=== PATIENT | female | born 2000 | race Caucasian/White ===

== ENCOUNTER 2020-02-05 23:16 | Emergency (ER) | payer OTHER ==
[2020-02-05 23:25] VITALS: BP 121/76; PULSE 77; TEMP 98.7; BMI 36.3
--- NOTE | 2020-02-06 00:02 | PDOC ---
Attending Attestation - Resident Resident Name: Maurice Morales - ED Attending Attestation I have performed the following: I have examined & evaluated the patient, The case was reviewed & discussed with the resident, I agree w/resident's findings & plan, Exceptions are as noted - HPI HPI: 19 yo F history asthma, hidradenitis suppurativa presents with swelling, pain, redness, drainage of pus to the left axilla. She states she has had multiple similar lesions in the past. She was evaluated by a surgeon but did not have any procedures. She has had multiple abscesses, she has popped them herself in the past. She states she attempted to pop this one herself as well, with some passage of purulent material. - Physicial Exam PE: GENERAL: Awake, alert, and fully oriented, in no acute distress HEAD: No signs of trauma EYES: PERRLA, EOMI, sclera anicteric, conjunctiva clear ENT: Auricles normal inspection, hearing grossly normal, nares patent, oropharynx clear without exudates. Moist mucosa NECK: Normal ROM, supple, no lymphadenopathy, JVD, or masses LUNGS: Breath sounds equal, clear to auscultation bilaterally. No wheezes, and no crackles HEART: Regular rate and rhythm, normal S1 and S2, no murmurs, rubs or gallops ABDOMEN: Soft, nontender, normoactive bowel sounds. No guarding, no rebound. No masses EXTREMITIES: Normal range of motion, no edema. No clubbing or cyanosis. No cords, erythema, or tenderness NEUROLOGICAL: Cranial nerves II through XII grossly intact. Normal speech, normal gait. Motor and sensation intact SKIN: Warm, dry, normal turgor. L axilla with tender, warm, fluctuant area with surrounding induration, draining slight purulent material. - Medical Decision Making L axillary abscess, already draining at time of ED arrival. As it was superficial, with an old tract, and at a head, small incision was made, with passage of moderate amt of purulent material. Stable for DC home. Referred to Dr. Mcwilliams as outpatient, as this is recurrent. Discharge - Discharge Information Problems reviewed: Yes Clinical Impression/Diagnosis: Axillary hidradenitis suppurativa Condition: Good Disposition: HOME - Additional Discharge Information Prescriptions: Sulfamethoxazole/Trimethoprim [Bactrim Ds -] 1 tab PO BID #14 tablet - Follow up/Referral Referrals: Baljinder Mcwilliams MD [Staff Physician] - Delfina Macario MD [Primary Care Provider] - - Patient Discharge Instructions Patient Printed Discharge Instructions: Hidradenitis Suppurativa Additional Instructions: Please follow up with the surgeon below. Please return if you have any new, worsening or concerning symptoms. - Post Discharge Activity
--- NOTE | 2020-02-06 00:13 | PDOC ---
History of Present Illness - General Chief Complaint: Pain Stated Complaint: ARM PAIN/L EAR PAIN Time Seen by Provider: 02/05/20 23:33 History Source: Patient Exam Limitations: No Limitations - History of Present Illness Initial Comments: 02/06/20 00:08 Patient is a 19F with history of asthma and hidradenitis suppurativa here today complaining of an abscess to her left armpit that started becoming painful today. Patient states she was under evaluation for surgery several years ago but decided against it. Denies fevers, chills, nausea, vomiting. Denies chest pain, shortness of breath, abdominal pain. Has anaphylactic reaction to PCN. LMP 10 days ago. Past History - Medical History Allergies/Adverse Reactions: Allergies Allergy/AdvReac Type Severity Reaction Status Date / Time Penicillins Allergy Hives Verified 05/17/14 01:45 Home Medications: Ambulatory Orders No Home Medications 0 dose .ROUTE UTDICT 07/11/12 Albuterol Sulfate Inhaler - [Ventolin HFA Inhaler -] 1 - 2 inh PO Q4H #1 inhaler 05/17/14 Azithromycin [Zithromax 250mg Tablets -] 250 mg PO DAILY #6 tablet 05/17/14 predniSONE [Deltasone -] 40 mg PO ASDIR #4 tab 05/17/14 Sulfamethoxazole/Trimethoprim [Bactrim Ds -] 1 tab PO BID #14 tablet 02/06/20 Asthma: Yes COPD: No - Immunization History Td Vaccination: Yes TDAP Vaccination: Yes Immunization Up to Date: Yes - Psycho-Social/Smoking History Smoking Status: No Smoking History: Unknown if ever smoked Number of Cigarettes Smoked Daily: 0 - Substance Abuse Hx (Audit-C & DAST Scrn) How often the patient has a drink containing alcohol: Monthly or less Score: In Men: 4 or > Positive; In Women: 3 or > Positive: 1 Screen Result (Pos requires Nsg. Audit-10AR): Negative Review of Systems - Review of Systems Able to Perform ROS?: Yes Comments:: 02/06/20 00:13 GENERAL/CONSTITUTIONAL: No fever or chills. No weakness. HEAD, EYES, EARS, NOSE AND THROAT: No change in vision. No sore throat. CARDIOVASCULAR: No chest pain or shortness of breath RESPIRATORY: No cough, wheezing, or hemoptysis. GASTROINTESTINAL: No nausea, vomiting, diarrhea or constipation. GENITOURINARY: No dysuria, frequency, or change in urination. MUSCULOSKELETAL: No joint or muscle swelling or pain. No neck or back pain. SKIN: No rash NEUROLOGIC: No headache, vertigo, loss of consciousness, or change in strength/sensation. ALLERGIC/IMMUNOLOGIC: No hives or skin allergy. *Physical Exam - Vital Signs Last Vital Signs Temp Pulse Resp BP Pulse Ox 98.7 F 77 18 121/76 97 02/05/20 23:23 02/05/20 23:23 02/05/20 23:23 02/05/20 23:23 02/05/20 23:23 - Physical Exam 02/06/20 00:13 GENERAL: Awake, alert, and fully oriented, in no acute distress L ARMPIT: 2cm fluctuant mass tender to palpation with small amount of drainage. Old scarring lesions. HEAD: No signs of trauma, normocephalic, atraumatic EYES: PERRLA, EOMI, sclera anicteric, conjunctiva clear ENT: Auricles normal inspection, hearing grossly normal, nares patent, oropharynx clear without exudates. Moist mucosa NECK: Normal ROM, supple, no lymphadenopathy, JVD, or masses LUNGS: No distress, speaks full sentences, clear to auscultation bilaterally HEART: Regular rate and rhythm, normal S1 and S2, no murmurs, rubs or gallops, peripheral pulses normal and equal bilaterally. ABDOMEN: Soft, nontender, normoactive bowel sounds. No guarding, no rebound. No masses EXTREMITIES: Normal inspection, Normal range of motion, no edema. No clubbing or cyanosis. NEUROLOGICAL: Cranial nerves II through XII grossly intact. Normal speech, normal gait, no focal sensorimotor deficits SKIN: Warm, Dry, normal turgor, no rashes or lesions noted. Procedures - Incision and Drainage I&D Site: Left: Axilla Anesthesia: 1% Lidocaine w/ Epi Volume(ml): 8 Blade Size: 11 Attempts: 1 Plain Packing: No Dressing: Yes Progress: 02/06/20 00:22 tolerated without complication Medical Decision Making - Medical Decision Making 02/06/20 00:14 Patient is 19F with history of hidradenitis suppurativa and asthma here today with an abscess. Vitals normal and stable. See procedure note for ID details. Will discharge with general surgeon follow up, return precautions, and antibiotics. Discharge - Discharge Information Problems reviewed: Yes Clinical Impression/Diagnosis: Axillary hidradenitis suppurativa Condition: Good Disposition: HOME - Admission No - Additional Discharge Information Prescriptions: Sulfamethoxazole/Trimethoprim [Bactrim Ds -] 1 tab PO BID #14 tablet - Follow up/Referral Referrals: Delfina Macario MD [Primary Care Provider] - Baljinder Mcwilliams MD [Staff Physician] - - Patient Discharge Instructions Patient Printed Discharge Instructions: Hidradenitis Suppurativa Additional Instructions: Please follow up with the surgeon below. Please return if you have any new, worsening or concerning symptoms. - Post Discharge Activity
== END 2020-02-06 00:21 | disposition home or self-care (01) ==
LOC: JER 23:16
DX: L73.2 Hidradenitis suppurativa (principal)
CPT/HCPCS: 99283-25